=== PATIENT | male | born 1945 | race Caucasian/White ===

== ENCOUNTER 2017-03-11 14:45 | Emergency (ER) | payer MEDICARE, OTHER ==
[~2017-03-11] VITALS: Ht 177.8 cm; Wt 95.8 kg
[~2017-03-11 14:45] MED LIST: ASPI81TA82 PO; ATOR80TA PO; BENZ100 PO; CARV12.5; LOSA50TA PO; PLAV75TA PO; SYNT25TA PO; TAB-TAB PO
[2017-03-11 14:50] VITALS: BP 130/93; PULSE 76; RESP 18; TEMP 97.8; O2SAT 94
[2017-03-11] MEDS ORDERED: SODIUM CHLOR 0.9% 1000 ML INJ 1,000 ML IV SCH (15:01)
[2017-03-11] MEDS ORDERED: SODIUM CHLORIDE 0.9% FLUSH 10 ML FLUSH IV FLUSH PRN (15:15)
--- NOTE | 2017-03-11 15:24 | PD ---
HPI Chief Complaint: Complaint Time Seen by Provider: 15:01 Travel History International Travel<30 days: No Contact w/Intl Traveler<30days: No Traveled to known affect area: No History of Present Illness HPI Patient is a 71-year-old male who presents to emergency room with complaints of hematuria. Patient reports that since Friday, he had noticed that his urine was dark red in color. Patient reports that he talked to his daughter who told him to drink plenty of fluids, reports that he has injured and plenty of water and his urine has thinned out. Patient reports concerns as his urine still appears red, he currently is on Plavix as he has history of multiple MIs and coronary artery stents. Patient reports no flank pain, denies lightheadedness or dizziness. Patient reports that he called his primary care doctor who was unable to speak to him and reviewing UA which he submitted on Friday. The doctor's office told him to call his urologist and he did call his urologist but he was unavailable due to surgeries, they told him to come to the emergency room for evaluation because he would not be able to be seen until . 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 Patient with no flank pain at this time, no history of kidney stones. Patient denies dysuria, urinary urgency or frequency. PFSH Past Medical History Hx Anticoagulant Therapy: Yes (CLOPEDIGREL) Arthritis: No Asthma: No Autoimmune Disease: No Blood Disorders: Yes (DVT) Heart Rhythm Problems: No Cancer: No Cardiac Catheterization: Yes (4 CARDIAC CATHS - 2000, 2002) Cardiovascular Problems: Yes High Cholesterol: Yes Chemotherapy: No Chest Pain: Yes (chest pressure "2" tonight on admission) Congestive Heart Failure: No COPD: No Cerebrovascular Accident: No Coronary Artery Disease: Yes Diabetes: No Diminished Hearing: No Endocrine: No Gastrointestinal Disorders: No GERD: No Glaucoma: No Genitourinary: No Headaches: No Hepatitis: No Hiatal Hernia: No Hypertension: Yes Immune Disorder: No Kidney Stones: No Musculoskeletal: No Neurologic: No Psychiatric: No Respiratory: No Migraines: No Myocardial Infarction: Yes Radiation Therapy: No Renal Failure: No Seizures: No Sickle Cell Disease: No Sleep Apnea: No Thyroid Disease: No Ulcer: No Past Surgical History Abdominal Surgery: Yes (12" COLONECTOMY) AICD: No Cardiac Surgery: Yes (2 STENT PLACEMENT) Cholecystectomy: Yes (2003) Coronary Stent: Yes (7 STENTS) Ear Surgery: No Endocrine Surgery: No Eye Surgery: No Genitourinary Surgery: Yes (GALL BLADDER REMOVAL 03) Gynecologic Surgery: Yes (VASECTOMY) Joint Replacement: No Neurologic Surgery: Yes (SKULL FRACTURE WITH SURGERY) Oral Surgery: No Pacemaker: No Other Surgery: Yes (HERNIA SURGERY AGE 13) Social History Alcohol Use: Yes (OCC) Tobacco Use: No (CIGARS DURING BIKE WEEK) Substance Use: Yes (MARIJUANA) Allergies-Medications (Allergen,Severity, Reaction): Coded Allergies: ticagrelor (Unverified Allergy, Severe, 03/11/17) Reported Meds & Prescriptions Reported Meds & Active Scripts Active Macrobid (Nitrofurantoin Monoh/Nitrofur Macro) 100 Mg Cap 100 Mg PO BID 10 Days Reported Atorvastatin (Atorvastatin Calcium) 80 Mg Tab 80 Mg PO HS Multiple Vitamin 1 Tab 1 Tab PO DAILY Plavix (Clopidogrel Bisulfate) 75 Mg Tab 75 Mg PO DAILY Carvedilol 12.5 Mg Tab 12.5 Mg PO BID Amlodipine (Amlodipine Besylate) 2.5 Mg Tab 2.5 Mg PO HS Levothyroxine (Levothyroxine Sodium) 125 Mcg Tab 125 Mcg PO DAILY Aspirin 81 Mg Chew 81 Mg CHEW DAILY Review of Systems General / Constitutional: No: Fever Eyes: No: Visual changes HENT: No: Headaches Cardiovascular: No: Chest Pain or Discomfort Respiratory: No: Shortness of Breath Gastrointestinal: No: Abdominal Pain Genitourinary: Positive: Hematuria, No: Dysuria, Hesitancy, Flank Pain Musculoskeletal: No: Pain Skin: No Rash Neurologic: No: Weakness, Dizziness, Headache Psychiatric: No: Depression Endocrine: No: Polydipsia Hematologic/Lymphatic: No: Easy Bruising Physical Exam Narrative GENERAL: No acute distress, nontoxic SKIN: Focused skin assessment warm/dry. HEAD: Atraumatic. Normocephalic. EYES: Pupils equal and round. No scleral icterus. No injection or drainage. ENT: No nasal bleeding or discharge. Mucous membranes pink and moist. NECK: Trachea midline. No JVD. CARDIOVASCULAR: Regular rate and rhythm. No murmur appreciated. RESPIRATORY: No accessory muscle use. Clear to auscultation. Breath sounds equal bilaterally. GASTROINTESTINAL: Abdomen soft, non-tender, nondistended. Hepatic and splenic margins not palpable. MUSCULOSKELETAL: No obvious deformities. No clubbing. No cyanosis. No edema. No flank pain NEUROLOGICAL: Awake and alert. No obvious cranial nerve deficits. Motor grossly within normal limits. Normal speech. PSYCHIATRIC: Appropriate mood and affect; insight and judgment normal. Data Data Last Documented VS Vital Signs Date Time Temp Pulse Resp B/P (MAP) Pulse Ox O2 Delivery O2 Flow Rate FiO2 03/11/17 17:00 67 18 152/97 (115) 98 Room Air 03/11/17 14:50 97.8 Orders Orders Complete Blood Count With Diff (03/11/17 15:) Comprehensive Metabolic Panel (03/11/17 15:) Prothrombin Time / Inr (Pt) (03/11/17 15:) Act Partial Throm Time (Ptt) (03/11/17 15:) Urinalysis - C+S If Indicated (03/11/17 15:) Iv Access Insert/Monitor (03/11/17 15:) Ecg Monitoring (03/11/17 15:) Oximetry (03/11/17 15:01) Sodium Chlor 0.9% 1000 Ml Inj (Ns 1000 M (03/11/17 15:01) Sodium Chloride 0.9% Flush (Ns Flush) (03/11/17 15:15) Ct Abd/Pel W/O Iv Contrast (03/11/17 15:16) Urine Culture (03/11/17 16:30) Ceftriaxone Inj (Rocephin Inj) (03/11/17 17:30) Labs Laboratory Tests Test 03/11/17 15:27 03/11/17 16:30 White Blood Count 8.2 TH/MM3 Red Blood Count 4.69 MIL/MM3 Hemoglobin 14.6 GM/DL Hematocrit 43.7 % Mean Corpuscular Volume 93.2 FL Mean Corpuscular Hemoglobin 31.1 PG Mean Corpuscular Hemoglobin Concent 33.4 % Red Cell Distribution Width 14.2 % Platelet Count 300 TH/MM3 Mean Platelet Volume 7.3 FL Neutrophils (%) (Auto) 70.4 % Lymphocytes (%) (Auto) 21.7 % Monocytes (%) (Auto) 6.2 % Eosinophils (%) (Auto) 1.3 % Basophils (%) (Auto) 0.4 % Neutrophils # (Auto) 5.8 TH/MM3 Lymphocytes # (Auto) 1.8 TH/MM3 Monocytes # (Auto) 0.5 TH/MM3 Eosinophils # (Auto) 0.1 TH/MM3 Basophils # (Auto) 0.0 TH/MM3 CBC Comment DIFF FINAL Differential Comment Prothrombin Time 10.6 SEC Prothromb Time International Ratio 1.0 RATIO Activated Partial Thromboplast Time 23.1 SEC Blood Urea Nitrogen 12 MG/DL Creatinine 0.91 MG/DL Random Glucose 103 MG/DL Total Protein 7.2 GM/DL Albumin 3.9 GM/DL Calcium Level 8.5 MG/DL Alkaline Phosphatase 98 U/L Aspartate Amino Transf (AST/SGOT) 24 U/L Alanine Aminotransferase (ALT/SGPT) 30 U/L Total Bilirubin 1.0 MG/DL Sodium Level 140 MEQ/L Potassium Level 3.9 MEQ/L Chloride Level 109 MEQ/L Carbon Dioxide Level 20.4 MEQ/L Anion Gap 11 MEQ/L Estimat Glomerular Filtration Rate 82 ML/MIN Urine Color BROWN Urine Turbidity MARKED Urine pH 5.5 Urine Specific [place] 1.017 Urine Protein 100 mg/dL Urine Glucose (UA) NEG mg/dL Urine Ketones NEG mg/dL Urine Occult Blood LARGE Urine Nitrite NEG Urine Bilirubin NEG Urine Leukocyte Esterase NEG Urine RBC INNUM /hpf Urine WBC 9-14 /hpf Urine Squamous Epithelial Cells 0-5 /hpf Urine Bacteria OCC /hpf Microscopic Urinalysis Comment CULTURE INDICATED MDM Medical Decision Making Medical Screen Exam Complete: Yes Emergency Medical Condition: Yes Medical Record Reviewed: Yes Interpretation(s) Vital Signs Date Time Temp Pulse Resp B/P (MAP) Pulse Ox O2 Delivery O2 Flow Rate FiO2 03/11/17 14:50 97.8 76 18 130/93 (105) 94 Differential Diagnosis Cystitis, kidney stones, bladder cancer Narrative Course During the course of the patients emergency department visit, the patients history, examination, and differential diagnosis were reviewed with the patient. The patient was placed on a monitoring coordinator with oximetry and frequent blood pressure monitoring. The patient had a 20-gauge IV access obtained and blood work sent for analysis. The patient was initially provided IV fluids The patients laboratory studies were reviewed and remarkable for CBC & BMP Diagram 03/11/17 15:27 Total Protein 7.2, Albumin 3.9, Calcium Level 8.5, Alkaline Phosphatase 98, Aspartate Amino Transf (AST/SGOT) 24, Alanine Aminotransferase (ALT/SGPT) 30, Total Bilirubin 1.0 UA positive for innumerable red blood cells, 9-40 white blood cells, occasional bacteria, large occult blood, brown urine. Urine culture sent Radiology studies were reviewed and remarkable for Last Impressions Abdomen/Pelvis CT 03/11/17 1516 Signed Impressions: Service Date/Time: Saturday, March 11, 2017 15:45 - CONCLUSION: 1. The prostate gland is enlarged and impresses upon the floor of the urinary bladder. There is a 1.5 cm soft tissue nodule involving the right posterior lateral portion of urinary bladder. I am unsure if this relates to a bladder wall mass or simply relates to a lobule extending off the prostate gland. 2. Bilateral renal cysts. 3. No renal calculi observed. 4. Chronic interstitial changes within the visualized lung bases. Faraz Rivera Jr., MD Patient with normal renal function with a BUN and creatinine of 12/0.91. CT of the abdomen and pelvis was reviewed with patient in detail, all incidental findings reviewed, copy of his CT report was given to him as he will need to follow-up with incidental findings with his urologist. Patient has an appointment with urologist on . An IV dose of Rocephin was ordered for him, will start him on Macrobid for his possible UTI as outpatient, urine culture was sent. Patient's hemoglobin is 14.6 which is stable at this time. Patient feeling much better at this time, signs and symptoms of when to return to the emergency room was reviewed patient in detail. Diagnosis Primary Impression: Hematuria Qualified Codes: R31.0 - Gross hematuria Additional Impressions: bladder wall mass Renal cyst Enlarged prostate UTI (urinary tract infection) Qualified Codes: N30.01 - Acute cystitis with hematuria Patient Instructions: General Instructions Additional Instructions: Please provide patient with a copy of their lab work and studies at discharge* * Please follow up with your primary care doctor in 2-3 days Return to the ER if symptoms worsen or progress Return to the ER as needed Please follow-up with urologist as soon as possible, bring a copy of your lab work and studies to your appointment Please follow up with all cultures from today Med/Other Pt SpecificInfo: Prescription(s) given Scripts Nitrofurantoin Monohydrate Macrocrystals (Macrobid) 100 Mg Cap 100 MG PO BID for Infection for 10 Days, #20 CAP 0 Refills Prov: Court Morel DO 03/11/17 Disposition: 01 DISCHARGE HOME Condition: Stable Court Morel DO Mar 11, 2017 15:24
[2017-03-11] MEDS ORDERED: CARV12.52 PO (15:41)
[2017-03-11] MEDS ORDERED: MULTTAB67 PO (15:41)
[2017-03-11] MEDS ORDERED: ASPI-516 CHEW (15:41)
[2017-03-11] MEDS ORDERED: PLAV75TA29 PO (15:41)
[2017-03-11] MEDS ORDERED: LEVO125T4 PO (15:41)
[2017-03-11] MEDS ORDERED: ATOR80TA45 PO (15:41)
[2017-03-11] MEDS ORDERED: AMLO2.5T PO (15:41)
[2017-03-11 15:42] LABS: AUTOMATED NEUTROPHIL # 5.8 TH/MM3 (1.8-7.7); BASOPHIL % 0.4 % (0.0-2.0); EOSINOPHIL # 0.1 TH/MM3 (0-0.4); EOSINOPHIL % 1.3 % (0.0-4.0); HEMATOCRIT 43.7 % (39.0-51.0); HEMO FLAGS DIFF FINAL; LYMPH % 21.7 % (9.0-44.0); LYMPHOCYTE # 1.8 TH/MM3 (1.0-4.8); MEAN CELL VOLUME 93.2 FL (80.0-100.0); MEAN CORPUSCULAR HEMOGLOBIN 31.1 PG (27.0-34.0); MEAN CORPUSCULAR HGB CONC 33.4 % (32.0-36.0); MONO % 6.2 % (0.0-8.0); NEUT % 70.4 % (16.0-70.0); PLATELET COUNT 300 TH/MM3 (150-450); RED BLOOD COUNT 4.69 MIL/MM3 (4.50-5.90); RED CELL DISTRIBUTION WIDTH 14.2 % (11.6-17.2); WHITE BLOOD COUNT 8.2 TH/MM3 (4.0-11.0)
[2017-03-11 15:57] LABS: CHLORIDE 109 MEQ/L (98-107); POTASSIUM 3.9 MEQ/L (3.5-5.1); SODIUM (NA) 140 MEQ/L (136-145)
[2017-03-11 16:01] LABS: ANION GAP 11 MEQ/L (5-15); APTT (PATIENT) 23.1 SEC (24.3-30.1); BICARBONATE 20.4 MEQ/L (21.0-32.0); BLOOD UREA NITROGEN 12 MG/DL (7-18); PROTHROMBIN TIME - PATIENT 10.6 SEC (9.8-11.6)
[2017-03-11 16:04] LABS: ALT (GPT) 30 U/L (12-78); AST (GOT) 24 U/L (15-37); GLOMERULAR FILTRATION RATE 82 ML/MIN (>89)
[2017-03-11 16:07] LABS: ALKALINE PHOSPHATASE 98 U/L (45-117)
--- NOTE | 2017-03-11 16:18 | RADRPT ---
EXAM DATE/TIME: 03/11/2017 15:45 [facility] COMPARISON: No previous studies available for comparison. INDICATIONS : Left abdominal pain with gross hematuria. ORAL CONTRAST: No oral contrast ingested. RADIATION DOSE: 22.75 CTDIvol (mGy) MEDICAL HISTORY : Cardiovascular disease. Hypertension. Deep venous thrombosis. SURGICAL HISTORY : Coronary artery stent. Cholecystectomy.Hernia repair. ENCOUNTER: Initial ACUITY: 4 - 6 days PAIN SCALE: 5/10 LOCATION: Left abdomen TECHNIQUE: Volumetric scanning of the abdomen and pelvis was performed. Using automated exposure control and ad justment of the mA and/or kV according to patient size, radiation dose was kept as low as reasonably achievable to obtain optimal diagnostic quality images. DICOM format image data is available electro nically for review and comparison. FINDINGS: LOWER LUNGS: Chronic interstitial changes within the visualized lung bases. LIVER: Homogeneous density without lesion. There is no dilation of the biliary tree. No calcified gallston es. SPLEEN: Normal size without lesion. PANCREAS: Within normal limits. KIDNEYS: Normal in size and shape. There is no mass, stone, or hydronephrosis. Bilateral cystic lesions are s een. There is a dominant cyst involving the lower pole of the right kidney measuring 11.[address] with Hounsfield units equal to 6. ADRENAL GLANDS: Within normal limits. VASCULAR: There is no aortic aneurysm. BOWEL/MESENTERY: The stomach, small bowel, and colon demonstrate no acute abnormality. There is no free intraperitone al air or fluid. An anastomosis is seen involving the sigmoid colon. ABDOMINAL WALL: Within normal limits. RETROPERITONEUM: There is no lymphadenopathy. BLADDER: The bladder is largely decompressed. There is the suggestion of trabeculation of the wall. The prosta te gland is enlarged and impresses upon the floor of the urinary bladder. There is a small lobule ass ociated with the right posterior lateral portion of the urinary bladder. This measures 1.5 cm in diam eter. REPRODUCTIVE: Within normal limits. INGUINAL: There is no lymphadenopathy or hernia. MUSCULOSKELETAL: Within normal limits for patient age. CONCLUSION: 1. The prostate gland is enlarged and impresses upon the floor of the urinary bladder. There is a 1.5 cm soft tissue nodule involving the right posterior lateral portion of urinary bladder. I am unsure if this relates to a bladder wall mass or simply relates to a lobule extending off the prostate gland . 2. Bilateral renal cysts. 3. No renal calculi observed. 4. Chronic interstitial changes within the visualized lung bases. Faraz Rivera Jr., MD on March 11, 2017 at 16:10 Board Certified Radiologist. This report was verified electronically.
[2017-03-11 16:48] LABS: BLOOD, URINE LARGE (NEG); GLUCOSE,URINE NEG (NEG); KETONE, URINE NEG (NEG); NITRITE,URINE NEG (NEG); PH, URINE 5.5 (5.0-8.5)
[2017-03-11 17:00] VITALS: BP 152/97; PULSE 67; RESP 18; O2SAT 98
[2017-03-11 17:14] LABS: BACTERIA, URINE OCC /hpf; RBC, URINE INNUM /hpf (0-3); SQUAMOUS EPITHELIAL CELL URINE 0-5 /hpf (0-5); URINE COLOR BROWN (YELLW/STRAW)
[2017-03-11 17:15] LABS: COMMENT (UR) CULTURE INDICATED; CULTURE IF INDICATED CULTURE INDICATED
[2017-03-11] MEDS ORDERED: MACR100C2 PO (17:20)
[2017-03-11] MEDS ORDERED: cefTRIAXone INJ 1,000 MG in SODIUM CHLORIDE 0.9% INJ 100 ML IV ONE (17:30)
[2017-03-11 18:08] VITALS: BP 125/87; PULSE 80; RESP 18; O2SAT 98
[2017-03-11 18:39] VITALS: BP 118/88
== END 2017-03-11 18:41 | disposition home or self-care (01) ==
LOC: PHED 14:45
DX: N30.01 Acute cystitis with hematuria (principal); N28.1 Cyst of kidney, acquired; N40.0 Benign prostatic hyperplasia without lower urinary tract symptoms
CPT/HCPCS: 74176; 80053; 81001; 85025; 85610; 85730; 87086; 96361; 96365; 99285; J0696; J7030

== ENCOUNTER 2017-05-09 04:20 | Emergency (ER) | payer OTHER ==
[~2017-05-09] VITALS: Ht 177.8 cm; Wt 95.5 kg
[2017-05-09] VITALS (11 sets, daily range): BP systolic 84–154; BP diastolic 53–112; PULSE 68–87; RESP 16–18; TEMP 97.5; O2SAT 96–98
[~2017-05-09 04:20] MED LIST changes: +AMLO2.5T PO; +ASPI-516 CHEW; -ASPI81TA82 PO; -ATOR80TA PO; +ATOR80TA45 PO; -BENZ100 PO; -CARV12.5; +CARV12.52 PO; +LEVO125T4 PO; -LOSA50TA PO; +MACR100C2 PO; +MULTTAB67 PO; -PLAV75TA PO; +PLAV75TA29 PO; -SYNT25TA PO; -TAB-TAB PO
[2017-05-09] MEDS ORDERED: SODIUM CHLORIDE 0.9% FLUSH 10 ML FLUSH IVF PRN (04:30)
[2017-05-09] MEDS ORDERED: ASPIRIN 81 MG CHEW TAB PO ONE (04:30)
--- NOTE | 2017-05-09 04:34 | PD ---
HPI Chief Complaint: Chest Pain Time Seen by Provider: 04:26 Travel History International Travel<30 days: No Contact w/Intl Traveler<30days: No Traveled to known affect area: No History of Present Illness HPI Patient is a 71-year-old male with a history of "7 stents in his heart" presents emergency Department with chest pain for the past hour and a half. Patient states that awoke him from a sound sleep, he is also having significant problems lying down flat as he was having some shortness of breath. States it feels just like the last time he had a heart attack. He states she's followed by Dr. Carrillo and had a checkup a month ago and states that his heart was cleared to have surgery for bladder cancer. Patient states he unfortunately forgot to stop taking his aspirin prior to surgery and that further surgery be done. He states the pain is in middle of his chest nonradiating, somebody with shortness of breath and orthopnea. Did not try anything to try and alleviate his symptoms morning. Context as above, associated signs symptoms. PFSH Past Medical History Hx Anticoagulant Therapy: Yes (CLOPEDIGREL) Arthritis: No Asthma: No Autoimmune Disease: No Blood Disorders: Yes (DVT) Heart Rhythm Problems: No Cancer: No Cardiac Catheterization: Yes (4 CARDIAC CATHS - 2000, 2002) Cardiovascular Problems: Yes High Cholesterol: Yes Chemotherapy: No Chest Pain: Yes (chest pressure) Congestive Heart Failure: No COPD: No Cerebrovascular Accident: No Coronary Artery Disease: Yes Diabetes: No Diminished Hearing: No Endocrine: No Gastrointestinal Disorders: No GERD: No Glaucoma: No Genitourinary: No Headaches: No Hepatitis: No Hiatal Hernia: No Hypertension: Yes Immune Disorder: No Kidney Stones: No Musculoskeletal: No Neurologic: No Psychiatric: No Respiratory: No Migraines: No Myocardial Infarction: Yes Radiation Therapy: No Renal Failure: No Seizures: No Sickle Cell Disease: No Sleep Apnea: No Thyroid Disease: No Ulcer: No ?: Not Past Surgical History Abdominal Surgery: Yes (12" COLONECTOMY) AICD: No Cardiac Surgery: Yes (2 STENT PLACEMENT) Cholecystectomy: Yes (2003) Coronary Stent: Yes (7 STENTS) Ear Surgery: No Endocrine Surgery: No Eye Surgery: No Genitourinary Surgery: Yes (GALL BLADDER REMOVAL 03) Gynecologic Surgery: Yes (VASECTOMY) Joint Replacement: No Neurologic Surgery: Yes (SKULL FRACTURE WITH SURGERY) Oral Surgery: No Pacemaker: No Other Surgery: Yes (HERNIA SURGERY AGE 13) Social History Alcohol Use: Yes (OCC) Tobacco Use: Yes (1/2ppd) Substance Use: Yes (MARIJUANA) Allergies-Medications (Allergen,Severity, Reaction): Coded Allergies: ticagrelor (Unverified Allergy, Severe, 03/11/17) Reported Meds & Prescriptions Reported Meds & Active Scripts Active Reported Atorvastatin (Atorvastatin Calcium) 80 Mg Tab 80 Mg PO HS Multiple Vitamin 1 Tab 1 Tab PO DAILY Plavix (Clopidogrel Bisulfate) 75 Mg Tab 75 Mg PO DAILY Carvedilol 12.5 Mg Tab 12.5 Mg PO BID Amlodipine (Amlodipine Besylate) 2.5 Mg Tab 2.5 Mg PO HS Levothyroxine (Levothyroxine Sodium) 125 Mcg Tab 125 Mcg PO DAILY Aspirin 81 Mg Chew 81 Mg CHEW DAILY Review of Systems Except as stated in HPI: all other systems reviewed are Neg Physical Exam Narrative GENERAL: Well-developed well-nourished in no obvious distress. SKIN: Focused skin assessment warm/dry. HEAD: Atraumatic. Normocephalic. EYES: Pupils equal and round. No scleral icterus. No injection or drainage. ENT: No nasal bleeding or discharge. Mucous membranes pink and moist. NECK: Trachea midline. No JVD. CARDIOVASCULAR: Regular rate and rhythm. No murmur appreciated. 2+ bilateral equal pulses in all 4 extremities. RESPIRATORY: No accessory muscle use. Bibasilar rales. Breath sounds equal bilaterally. GASTROINTESTINAL: Abdomen soft, non-tender, nondistended. Hepatic and splenic margins not palpable. MUSCULOSKELETAL: No obvious deformities. No clubbing. No cyanosis. No edema. NEUROLOGICAL: Awake and alert. No obvious cranial nerve deficits. Motor grossly within normal limits. Normal speech. PSYCHIATRIC: Appropriate mood and affect; insight and judgment normal. Data Data Last Documented VS Vital Signs Date Time Temp Pulse Resp B/P (MAP) Pulse Ox O2 Delivery O2 Flow Rate FiO2 05/09/17 06:18 78 16 126/83 (97) 97 Nasal Cannula 2.00 05/09/17 04:20 97.5 Orders Orders Electrocardiogram (05/09/17 04:30) Complete Blood Count With Diff (05/09/17 04:30) Chest, Single Ap (05/09/17 04:30) Iv Access Insert/Monitor (05/09/17 04:30) Ecg Monitoring (05/09/17 04:30) Oxygen Administration (05/09/17 04:30) Oximetry (05/09/17 04:30) Electrocardiogram (05/09/17 04:26) B-Type Natriuretic Peptide (05/09/17 04:26) Ckmb (Isoenzyme) Profile (05/09/17 04:26) Comprehensive Metabolic Panel (05/09/17 04:26) Magnesium (Mg) (05/09/17 04:26) Prothrombin Time / Inr (Pt) (05/09/17 04:26) Act Partial Throm Time (Ptt) (05/09/17 04:26) Troponin I (05/09/17 04:26) Aspirin Chew (Aspirin Chew) (05/09/17 04:30) Sodium Chloride 0.9% Flush (Ns Flush) (05/09/17 04:30) Nitroglycerin Sl (Nitrostat Sl) (05/09/17 04:30) Ct Pulmonary Angiogram (05/09/17 ) Sodium Chlorid 0.9% 500 Ml Inj (Ns 500 M (05/09/17 05:00) CKMB (05/09/17 04:25) CKMB% (05/09/17 04:25) Acetamin-Hydrocod 325-5 Mg ([place] 5-325 (05/09/17 05:15) Iohexol 350 Inj (Omnipaque 350 Inj) (05/09/17 05:15) Troponin I (05/09/17 06:40) Ed Discharge Order (05/09/17 07:23) Labs Laboratory Tests Test 05/09/17 04:25 05/09/17 06:50 White Blood Count 9.4 TH/MM3 Red Blood Count 5.11 MIL/MM3 Hemoglobin 15.3 GM/DL Hematocrit 46.7 % Mean Corpuscular Volume 91.4 FL Mean Corpuscular Hemoglobin 29.9 PG Mean Corpuscular Hemoglobin Concent 32.7 % Red Cell Distribution Width 13.3 % Platelet Count 316 TH/MM3 Mean Platelet Volume 7.0 FL Neutrophils (%) (Auto) 73.8 % Lymphocytes (%) (Auto) 17.4 % Monocytes (%) (Auto) 6.7 % Eosinophils (%) (Auto) 1.6 % Basophils (%) (Auto) 0.5 % Neutrophils # (Auto) 7.0 TH/MM3 Lymphocytes # (Auto) 1.6 TH/MM3 Monocytes # (Auto) 0.6 TH/MM3 Eosinophils # (Auto) 0.2 TH/MM3 Basophils # (Auto) 0.0 TH/MM3 CBC Comment DIFF FINAL Differential Comment Prothrombin Time 9.9 SEC Prothromb Time International Ratio 1.0 RATIO Activated Partial Thromboplast Time 26.9 SEC Blood Urea Nitrogen 17 MG/DL Creatinine 1.00 MG/DL Random Glucose 104 MG/DL Total Protein 7.4 GM/DL Albumin 3.8 GM/DL Calcium Level 8.6 MG/DL Magnesium Level 2.3 MG/DL Alkaline Phosphatase 112 U/L Aspartate Amino Transf (AST/SGOT) 20 U/L Alanine Aminotransferase (ALT/SGPT) 30 U/L Total Bilirubin 0.7 MG/DL Sodium Level 137 MEQ/L Potassium Level 3.7 MEQ/L Chloride Level 105 MEQ/L Carbon Dioxide Level 24.3 MEQ/L Anion Gap 8 MEQ/L Estimat Glomerular Filtration Rate 74 ML/MIN Total Creatine Kinase 105 U/L Creatine Kinase MB 1.2 NG/ML Troponin I LESS THAN 0.02 NG/ML LESS THAN 0.02 NG/ML B-Type Natriuretic Peptide 48 PG/ML MDM Medical Decision Making Medical Screen Exam Complete: Yes Emergency Medical Condition: Yes Differential Diagnosis Status, CHF, AMI, PE, pneumonia. Narrative Course Patient roomed emergency department, patient states is having chest pain very similar to last him he had a heart attack, however the patient did have stress test and echocardiogram a month ago with Dr. Carrillo. EKG troponin negative. Troponin trended in the emergency department and remains negative. I discussed the patient that his symptoms are of concern particularly if he thinks they are similar to previous heart attack. Furthermore the patient does have some fluid build up on his lungs, BNP was negative, no fever no symptoms consistent with pneumonia. CT PE protocol showed no evidence for pulmonary embolism. The patient was unrelieved by nitroglycerin and then after hydrocodone feels much better. I recommended to the patient that he be admitted to the chest pain center but he would rather follow up with Dr. Carrillo and thinks he can do so in the next day or 2. I discussed with him that until he follows up for further workup he is at risk of major adverse cardiac events including and permanent disability. The patient verbalized understanding and agreement still wished to leave. I discussed with him that he is welcome to return at any time should his pain return. No indication for antibiotic therapy at this time. Diagnosis Primary Impression: Chest pain Disposition: 01 DISCHARGE HOME Condition: Stable Kali Steele MD May 09, 2017 04:34
[2017-05-09] MEDS: NITROGLYCERIN 0.4 MG SL 25 TABS/BTL SL SCH ×3 (04:35→04:55)
[2017-05-09 04:43] LABS: BASOPHIL % 0.5 % (0.0-2.0); EOSINOPHIL # 0.2 TH/MM3 (0-0.4); EOSINOPHIL % 1.6 % (0.0-4.0); HEMATOCRIT 46.7 % (39.0-51.0); HEMOGLOBIN 15.3 GM/DL (13.0-17.0); LYMPH % 17.4 % (9.0-44.0); LYMPHOCYTE # 1.6 TH/MM3 (1.0-4.8); MEAN CELL VOLUME 91.4 FL (80.0-100.0); MEAN CORPUSCULAR HEMOGLOBIN 29.9 PG (27.0-34.0); MEAN CORPUSCULAR HGB CONC 32.7 % (32.0-36.0); MONO % 6.7 % (0.0-8.0); MONOCYTE # 0.6 TH/MM3 (0-0.9); NEUT % 73.8 % (16.0-70.0); PLATELET COUNT 316 TH/MM3 (150-450); RED BLOOD COUNT 5.11 MIL/MM3 (4.50-5.90); RED CELL DISTRIBUTION WIDTH 13.3 % (11.6-17.2); WHITE BLOOD COUNT 9.4 TH/MM3 (4.0-11.0)
[2017-05-09 04:51] LABS: CHLORIDE 105 MEQ/L (98-107); SODIUM (NA) 137 MEQ/L (136-145)
[2017-05-09 04:55] LABS: ALBUMIN 3.8 GM/DL (3.4-5.0); BICARBONATE 24.3 MEQ/L (21.0-32.0); BLOOD UREA NITROGEN 17 MG/DL (7-18); CALCIUM 8.6 MG/DL (8.5-10.1); GLUCOSE,RANDOM 104 MG/DL (74-106); MAGNESIUM 2.3 MG/DL (1.5-2.5); PROTHROMBIN TIME - PATIENT 9.9 SEC (9.8-11.6)
[2017-05-09 04:58] LABS: ALT (GPT) 30 U/L (12-78); AST (GOT) 20 U/L (15-37); GLOMERULAR FILTRATION RATE 74 ML/MIN (>89)
[2017-05-09 05:00] LABS: TOTAL BILIRUBIN ADULT 0.7 MG/DL (0.2-1.0); TOTAL PROTEIN 7.4 GM/DL (6.4-8.2)
[2017-05-09] MEDS ORDERED: SODIUM CHLORID 0.9% 500 ML INJ 500 ML IV ONE (05:00)
[2017-05-09 05:01] LABS: ALKALINE PHOSPHATASE 112 U/L (45-117)
[2017-05-09 05:03] LABS: TROPONIN I LESS THAN 0.02 NG/ML (0.02-0.05)
[2017-05-09] MEDS ORDERED: IOHEXOL 350 MG/ML 10 ML VIAL (for RAD DIAG) IVCONTRAST ONE (05:15)
[2017-05-09] MEDS ORDERED: ACETAMINOPHEN/HYDROcodone 325 MG/5 MG TAB PO ONE (05:15)
--- NOTE | 2017-05-09 05:22 | RADRPT ---
EXAM DATE/TIME: 05/09/2017 04:42 [facility] COMPARISON: CHEST PA & LAT, July 23, 2013, 10:45. INDICATIONS : Chest pain, difficulty breathing starting today MEDICAL HISTORY : Cardiovascular disease. Hypertension. Deep venous thrombosis SURGICAL HISTORY : Coronary artery stent. Cholecystectomy.Hernia repair. ENCOUNTER: Initial ACUITY: 1 day PAIN SCORE: 8/10 LOCATION: Bilateral chest FINDINGS: A single view of the chest demonstrates the lungs to be symmetrically aerated without evidence of mas s, infiltrate or effusion. There appears to be some chronic interstitial changes bilaterally. The car diomediastinal contours are unremarkable. Osseous structures are intact. CONCLUSION: There appears to be some chronic interstitial disease bilaterally. Otherwise no significant change co mpared to the prior exam. Jose Salazar MD on May 09, 2017 at 5:20 Board Certified Radiologist. This report was verified electronically.
--- NOTE | 2017-05-09 05:51 | RADRPT ---
EXAM DATE/TIME: 05/09/2017 05:22 [place] COMPARISON: No previous studies available for comparison. INDICATIONS : Chest pain. History of DVT IV CONTRAST: 74 cc Omnipaque 350 (iohexol) IV RADIATION DOSE: 20.05 CTDIvol (mGy) MEDICAL HISTORY : Cardiovascular disease. Hypertension. SURGICAL HISTORY : Cholecystectomy. Coronary artery stent.ND ENCOUNTER: Initial ACUITY: 1 day PAIN SCALE: 5/10 LOCATION: chest TECHNIQUE: Volumetric scanning of the chest was performed using a pulmonary embolism protocol MIP images were re constructed. Using automated exposure control and adjustment of the mA and/or kV according to patien t size, radiation dose was kept as low as reasonably achievable to obtain optimal diagnostic quality images. DICOM format image data is available electronically for review and comparison. Follow-up recommendations for detected pulmonary nodules are based at a minimum on nodule size and pa tient risk factors according to Fleischner Society Guidelines. FINDINGS: PULMONARY ARTERIES: No filling defects are seen in the pulmonary arteries through the segmental level. LUNGS: There is some scattered interstitial infiltrates in both lung brewer. There is bronchiectasis in the anterior right upper lung. There some infiltrates in both posterior lower lungs. PLEURAE: There is no pleural thickening or pleural effusion. MEDIASTINUM: There is good visualization of the great vessels of the middle mediastinum. No evidence of mediastin al or hilar adenopathy/mass. The heart size is enlarged. MUSCULOSKELETAL: Within normal limits for patient age. There are degenerative changes present. MISCELLANEOUS: The visualized upper abdominal organs demonstrate no acute abnormality. CONCLUSION: 1. No evidence of pulmonary embolism. 2. Scattered infiltrates are seen in both lung brewer. 3. Cardiomegaly. Jose Salazar MD on May 09, 2017 at 5:45 Board Certified Radiologist. This report was verified electronically.
--- NOTE | 2017-05-09 14:44 | EKG ---
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
== END 2017-05-09 07:52 | disposition home or self-care (01) ==
LOC: PHED 04:20
DX: R07.9 Chest pain, unspecified (principal); R06.02 Shortness of breath; R06.01 Orthopnea; R94.31 Abnormal electrocardiogram [ECG] [EKG]; I10 Essential (primary) hypertension; I25.10 Atherosclerotic heart disease of native coronary artery without angina pectoris; E78.00 Pure hypercholesterolemia, unspecified; I25.2 Old myocardial infarction; Z79.01 Long term (current) use of anticoagulants; Z86.718 Personal history of other venous thrombosis and embolism
CPT/HCPCS: 71045; 71275; 80053; 82550; 82552; 83735; 83880; 84484; 85025; 85610; 85730; 93005; 96360; 99285; J7040; Q9967